=== PATIENT | female | born 1935 | race Caucasian/White ===

== ENCOUNTER 2016-06-24 11:14 | Inpatient (IN) | payer MEDICARE, OTHER ==
[2016-06-24 12:01] LABS: Hematocrit 34 % (35-47); Hemoglobin 10.8 g/dl (12.0-16.0); Mean Corpuscular HGB Conc 32 g/dl (31-36); Mean Corpuscular Hemoglobin 28 pg (27-31); Mean Corpuscular Volume 87 fL (80-97); Mean Platelet Volume 9 um3 (7.4-10.4); Red Cell Distribution Width 15 % (10.5-15); White Blood Count 15.3 10^3/ul (3.5-10.8)
[2016-06-24 12:02] LABS: Comments Flag Yes
[2016-06-24 12:13] LABS: Albumin 2.7 g/dL (3.2-5.2); BUN/Creatinine Ratio 31.7 (8-20); Calcium 9.5 mg/dL (8.6-10.3); EGFR African American 85.6 (>60); EGFR Non-African American 66.6 (>60); Globulin 3.6 g/dL (2-4); Magnesium 2.1 mg/dL (1.9-2.7); Potassium 3.9 mmol/L (3.5-5.0); Total Protein 6.3 g/dL (6.4-8.9)
[2016-06-24 12:15] LABS: Troponin I 0.03 ng/mL (<0.04)
--- NOTE | 2016-06-24 12:15 | RAD ---
Indication: Altered mental status. Generalized illness. Chronic Charcot pulmonary disease. Comparison: June 11, 2016 chest radiograph and December 18, 2014 CT. Technique: Upright AP 1152 hours Report: Elevated lung volumes with significant rarefaction of the interstitial markings. No alveolar consolidation, focal pulmonary lesion, pleural effusion, pneumothorax. Upper normal heart size. Severely tortuous descending thoracic aorta without change compared with the prior CT. Prominent central pulmonary vasculature with peripheral attenuation favoring pulmonary arterial hypertension. S-shaped curve of the thoracic spine convex to the LEFT superiorly into the RIGHT in the mid to distal portion is unchanged. IMPRESSION: Stigmata of chronic obstructive pulmonary disease/emphysema with pulmonary arterial hypertension. No superimposed acute cardiopulmonary process evident.
[2016-06-24 12:18] LABS: B Type Natriuretic Peptide 111 pg/mL
[2016-06-24 12:19] LABS: Urine Bacteria 1+ (Absent); Urine Bilirubin Negative (Negative); Urine Glucose Negative (Negative); Urine Nitrite Positive (Negative)
[2016-06-24 12:22] LABS: TSH (Thyroid Stimulating Horm) 0.39 mcIU/mL (0.34-5.60)
[2016-06-24 12:26] LABS: Ammonia 33 mol/L (16-53)
[2016-06-24] MEDS ORDERED: cefTRIAXone(*) 1 GM in NS 0.9% 50 ML* 50 ML IVPB ONE (12:33)
[2016-06-24 12:36] LABS: C Reactive Protein 351.51 mg/L (< 5.00); Total Bilirubin 0.7 mg/dL (0.2-1.0)
[2016-06-24] MEDS: NS 0.9% 1000 ML* 2,000 ML IV ONE ×2 (12:55→14:34)
[2016-06-24] MEDS ORDERED: Ondansetron INJ* 2 MG/ML VIAL IV PRN (13:15)
[2016-06-24] MEDS ORDERED: Albuterol 2.5 MG/3 ML NEB.SOL* (0.083%) INH PRN (13:18)
--- NOTE | 2016-06-24 14:40 | ED ---
Estuardo Milner Matthew, scribed for Pablo Lowry MD on 06/24/16 at 1233 . Complex/Multi-Sys Presentation - HPI Summary HPI Summary: An 81 y/o female presents to the ED with weakness and coughing since 06/10. The patient was Dx on 06/10 with pneumonia, however the prescription for Z-pack was not give at [place]. The patient's family made her an appoint with Dr. Almaraz and was re-prescribed the Z-pack, which did not relieve her symptoms. The patient remains symptomatic. Associated symptoms include weakness, decreased appetite/thirst, incontinence, and cough. The patient denies urinary symptoms, diarrhea, and abdominal pain. The patient has a Hx of COPD and kidney failure. - History Of Current Complaint Chief Complaint: EDGeneral Time Seen by Provider: 06/24/16 12:08 Hx Obtained From: Patient Onset/Duration: Gradual Onset, Lasting Weeks, Still Present Timing: Constant Severity Currently: Moderate Severity Initially: Moderate Location: Negative Associated Signs And Symptoms: Positive: Weakness, Cough. Negative: Diarrhea, Abdominal Pain - Allergies/Home Medications Allergies/Adverse Reactions: Allergies Allergy/AdvReac Type Severity Reaction Status Date / Time Ciprofloxacin Allergy Unknown Unknown Verified 06/24/16 12:23 Reaction Details Sulfa Drugs Allergy Unknown Unknown Verified 06/24/16 12:23 Reaction Details Home Medications: Home Medications Acetaminophen [Acetaminophen Extra Stren] 1,000 mg PO Q8HR PRN 06/24/16 [ History Confirmed 06/24/16] PMH/Surg Hx/FS Hx/Imm Hx Endocrine/Hematology History: Denies: Hx Anticoagulant Therapy, Hx Diabetes Cardiovascular History: Reports: Hx Hypertension, Other Cardiovascular Problems/ Disorders - HAS ONLY 1 FUNCTIONING KIDNEY Respiratory History: Reports: Hx Chronic Obstructive Pulmonary Disease (COPD), Hx Pneumonia, Hx Pulmonary Edema, Other Respiratory Problems/Disorders - PNEUMONIA Denies: Hx Asthma GI History: Reports: Hx Diverticulosis History: Reports: Hx Renal Disease, Other Problems/Disorders - Renal disease, 1 functioning kidney, Denies: Hx Dialysis Musculoskeletal History: Reports: Hx Osteoporosis, Hx Scoliosis Denies: Hx Back Problems Sensory History: Reports: Hx Cataracts, Hx Contacts or Glasses Opthamlomology History: Reports: Hx Cataracts, Hx Contacts or Glasses Neurological History: Reports: Hx Dementia, Hx Seizures Denies: Hx Developmental Delay - Surgical History Surgery Procedure, Year, and Place: tonsils, appendix and cataract. unable to recall dates. distant past Hx Anesthesia Reactions: No Infectious Disease History: No Infectious Disease History: Denies: Hx Clostridium Difficile, Hx Hepatitis, Hx Human Immunodeficiency Virus (HIV), Hx Shingles, Hx Tuberculosis, Traveled Outside the [place] in Last 30 Days - Family History Family History: FHx of Breast CA. - Social History Alcohol Use: None Alcohol Amount: 1/year Substance Use Type: Reports: None Hx Tobacco Use: Yes Smoking Status (MU): Former Smoker Type: Cigarettes Amount Used/How Often: 30 years Length of Time of Smoking/Using Tobacco: pt does not recall start and stop date. says "20- 30 years" Have You Smoked in the Last Year: No Review of Systems Constitutional: Negative Eyes: Negative ENT: Negative Cardiovascular: Negative Positive: Cough Gastrointestinal: Negative Negative: Abdominal Pain, Diarrhea Genitourinary: Negative Positive: no symptoms reported Skin: Negative Positive: Weakness - general Psychological: Normal All Other Systems Reviewed And Are Negative: Yes Physical Exam Triage Information Reviewed: Yes Vital Signs On Initial Exam: Initial Vitals Temp Pulse Resp BP Pulse Ox 98.5 F 91 20 109/64 99 06/24/16 11:16 06/24/16 11:16 06/24/16 11:16 06/24/16 11:16 06/24/16 11:16 Vital Signs Reviewed: Yes Appearance: Positive: Well-Appearing, No Pain Distress Skin: Positive: Warm, Skin Color Reflects Adequate Perfusion, Dry Head/Face: Positive: Normal Head/Face Inspection Eyes: Positive: EOMI, OLI ENT: Positive: Other - oral mucosa dry Neck: Positive: Supple, Nontender Respiratory/Lung Sounds: Positive: Clear to Auscultation, Breath Sounds Present Cardiovascular: Positive: RRR Abdomen Description: Positive: Nontender, Soft Bowel Sounds: Positive: Present Musculoskeletal: Positive: Normal, Strength/ROM Intact Neurological: Positive: Sensory/Motor Intact, Alert, Oriented to Person Place, Time Psychiatric: Positive: Affect/Mood Appropriate Diagnostics - Vital Signs Vital Signs Temp Pulse Resp BP Pulse Ox 06/24/16 11:16 98.5 F 91 20 109/64 99 - Laboratory Lab Results: Lab Results 06/24/16 06/24/16 06/24/16 Range/Units 11:44 11:44 11:44 WBC 15.3 H (3.5-10.8) 10^3/ul RBC 3.90 L (4.0-5.4) 10^6/ul Hgb 10.8 L (12.0-16.0) g/dl Hct 34 L (35-47) % MCV 87 (80-97) fL MCH 28 (27-31) pg MCHC 32 (31-36) g/dl RDW 15 (10.5-15) % Plt Count 382 (150-450) 10^3/ul MPV 9 (7.4-10.4) um3 Neut % (Auto) 78.8 (38-83) % Lymph % (Auto) 9.7 L (25-47) % [place] % (Auto) 11.0 H (1-9) % Eos % (Auto) 0 (0-6) % Baso % (Auto) 0.5 (0-2) % Absolute Neuts (auto) 12.0 H (1.5-7.7) 10^3/ul Absolute Lymphs (auto) 1.5 (1.0-4.8) 10^3/ul Absolute Monos (auto) 1.7 H (0-0.8) 10^3/ul Absolute Eos (auto) 0 (0-0.6) 10^3/ul Absolute Basos (auto) 0.1 (0-0.2) 10^3/ul Absolute Nucleated RBC 0 10^3/ul Nucleated RBC % 0 INR (Anticoag Therapy) 1.49 H (0.89-1.11) APTT 26.9 (26.0-36.3) seconds Sodium (133-145) mmol/L Potassium (3.5-5.0) mmol/L Chloride (101-111) mmol/L Carbon Dioxide (22-32) mmol/L Anion Gap (2-11) mmol/L BUN (6-24) mg/dL Creatinine (0.51-0.95) mg/dL Est GFR ( Amer) (>60) Est GFR (Non-Af Amer) (>60) BUN/Creatinine Ratio (8-20) Glucose (70-100) mg/dL Lactic Acid (0.5-2.0) mmol/L Calcium (8.6-10.3) mg/dL Magnesium (1.9-2.7) mg/dL Total Bilirubin AST (13-39) U/L ALT (7-52) U/L Alkaline Phosphatase (34-104) U/L Ammonia CK-MB (CK-2) (0.6-6.3) ng/mL Troponin I (<0.04) ng/mL C-Reactive Protein B-Natriuretic Peptide ( - 100) pg/mL Total Protein (6.4-8.9) g/dL Albumin (3.2-5.2) g/dL Globulin (2-4) g/dL Albumin/Globulin Ratio (1-3) Lipase (11.0-82.0) U/L TSH Urine Color Yellow Urine Appearance Cloudy Urine pH 5.0 (5-9) Ur Specific [place] 1.020 (1.010-1.030) Urine Protein Negative (Negative) Urine Ketones 1+ H (Negative) Urine Blood 1+ H (Negative) Urine Nitrate Positive H (Negative) Urine Bilirubin Negative (Negative) Urine Urobilinogen Negative (Negative) Ur Leukocyte Esterase 3+ H (Negative) Urine WBC (Auto) 3+(>20/hpf) H (Absent) Urine RBC (Auto) 1+(3-5/hpf) H (Absent) Ur Squamous Epith Cells Present H (Absent) Ur Transition Epith Cell Present H (Absent) Urine Bacteria 1+ H (Absent) Urine Glucose Negative (Negative) 06/24/16 06/24/16 06/24/16 Range/Units 11:44 11:44 11:44 WBC (3.5-10.8) 10^3/ul RBC (4.0-5.4) 10^6/ul Hgb (12.0-16.0) g/dl Hct (35-47) % MCV (80-97) fL MCH (27-31) pg MCHC (31-36) g/dl RDW (10.5-15) % Plt Count (150-450) 10^3/ul MPV (7.4-10.4) um3 Neut % (Auto) (38-83) % Lymph % (Auto) (25-47) % [place] % (Auto) (1-9) % Eos % (Auto) (0-6) % Baso % (Auto) (0-2) % Absolute Neuts (auto) (1.5-7.7) 10^3/ul Absolute Lymphs (auto) (1.0-4.8) 10^3/ul Absolute Monos (auto) (0-0.8) 10^3/ul Absolute Eos (auto) (0-0.6) 10^3/ul Absolute Basos (auto) (0-0.2) 10^3/ul Absolute Nucleated RBC 10^3/ul Nucleated RBC % INR (Anticoag Therapy) (0.89-1.11) APTT (26.0-36.3) seconds Sodium 138 (133-145) mmol/L Potassium 3.9 (3.5-5.0) mmol/L Chloride 100 L (101-111) mmol/L Carbon Dioxide 27 (22-32) mmol/L Anion Gap 11 (2-11) mmol/L BUN 26 H (6-24) mg/dL Creatinine 0.82 (0.51-0.95) mg/dL Est GFR ( Amer) 85.6 (>60) Est GFR (Non-Af Amer) 66.6 (>60) BUN/Creatinine Ratio 31.7 H (8-20) Glucose 137 H (70-100) mg/dL Lactic Acid 1.0 (0.5-2.0) mmol/L Calcium 9.5 (8.6-10.3) mg/dL Magnesium 2.1 (1.9-2.7) mg/dL Total Bilirubin Pending AST 82 H (13-39) U/L ALT 50 (7-52) U/L Alkaline Phosphatase 84 (34-104) U/L Ammonia Pending CK-MB (CK-2) 2.1 (0.6-6.3) ng/mL Troponin I 0.03 (<0.04) ng/mL C-Reactive Protein Pending B-Natriuretic Peptide 111 H ( - 100) pg/mL Total Protein 6.3 L (6.4-8.9) g/dL Albumin 2.7 L (3.2-5.2) g/dL Globulin 3.6 (2-4) g/dL Albumin/Globulin Ratio 0.8 L (1-3) Lipase 17 (11.0-82.0) U/L TSH Pending Urine Color Urine Appearance Urine pH (5-9) Ur Specific [place] (1.010-1.030) Urine Protein (Negative) Urine Ketones (Negative) Urine Blood (Negative) Urine Nitrate (Negative) Urine Bilirubin (Negative) Urine Urobilinogen (Negative) Ur Leukocyte Esterase (Negative) Urine WBC (Auto) (Absent) Urine RBC (Auto) (Absent) Ur Squamous Epith Cells (Absent) Ur Transition Epith Cell (Absent) Urine Bacteria (Absent) Urine Glucose (Negative) Result Diagrams: 06/24/16 11:44 06/24/16 11:44 Lab Statement: Any lab studies that have been ordered have been reviewed, and results considered in the medical decision making process. - Radiology CXR Xray Interpretation: No Acute Changes - IMPRESSION: Stigmata of chronic obstructive pulmonary disease/emphysema with pulmonary arterial hypertension. No superimposed acute cardiopulmonary process evident. Radiology Interpretation Completed By: Radiologist - EKG 11:29 Cardiac Rate: NL - 93 bpm EKG Rhythm: Sinus Rhythm Ectopy: PACs EKG Interpretation: RBBB; LAFB Complex Multi-Symp Course/Dx Assessment/Plan: ADMIT HOSPITALIST STABLE - Diagnoses Provider Diagnoses: Weakness, UTI (urinary tract infection) - Physician Notifications Discussed Care Of Patient With: Dr. Rhoades (Hospitalist) at 1:02 -- Notified of patient's history and will admit the patient. Discharge - Discharge Plan Condition: Stable Disposition: ADMITTED TO [facility] The documentation as recorded by the Estuardo machado Matthew accurately reflects the service I personally performed and the decisions made by me, Pablo Lowry MD.
--- NOTE | 2016-06-24 16:20 | RAD ---
Indication: Assess hydronephrosis. History of severe LEFT hydronephrosis. Comparison: December 04, 2015 ultrasound. December 03, 2015 CT. Technique: Renal ultrasound. Report: 11.9 x 5.4 x 5.7 cm RIGHT kidney demonstrates normal cortical echogenicity. No conspicuous stones, hydronephrosis, or focal lesions evident. 20 x 9.9 x 9.9 cm LEFT kidney is remarkable for severe pelvicaliectasis with near imperceptible rind of cortical tissue similar to the prior exam. Low-level echoes within the dilated calyces of the LEFT kidney consistent with debris. IMPRESSION: 1. Normal ultrasound appearance of the RIGHT kidney. 2. Marked LEFT hydronephrosis and cortical atrophy without gross change.
[2016-06-24] MEDS: Enoxaparin(*) 40 MG/0.4 ML SYR SUBCUT SCH (17:36)
[2016-06-24] MEDS: NS 0.9% 1000 ML* 1,000 ML IV SCH (17:37)
--- NOTE | 2016-06-24 18:13 | PN ---
Hospitalist Progress Note Renal US shows significant L sided hydronephrosis. Requested percutaneous nephrostomy tube placement for tomorrow am with interventional radiology.
[2016-06-24] MEDS: Mometasone/Formoter 200/5 MDI INH SCH (19:55)
[2016-06-24] MEDS: levETIRAcetam TAB* 500 MG PO SCH (20:37)
--- NOTE | 2016-06-24 21:45 | HP ---
ADMISSION HISTORY AND PHYSICAL: DATE OF ADMISSION: 06/24/16 PRIMARY CARE PROVIDER: Celeste Almaraz MD ADMITTING PROVIDER: ADELAIDE Thakkar SUPERVISING PHYSICIAN: Nichole Amato MD* (report dictated by ADELAIDE Thakkar). CHIEF COMPLAINT: Weakness. HISTORY OF PRESENT ILLNESS: This is an 81-year-old female with oxygen- dependent COPD, mild dementia, and seizure disorder who presented to the emergency department with complaints of weakness. The patient was last seen in the emergency department on June 11 just less than 2 weeks ago. Chest x- ray was suggestive of a right lower lobe infiltrate and the patient was prescribed azithromycin. There seemed to be a delay in her receiving the azithromycin, but she did complete treatment as of yesterday. She at her baseline is quite active, but has really not gotten out of bed at all in the last 10 days or so. She has been incontinent of urine, which is abnormal for her. She denies associated abdominal pain. She has been afebrile. She is a long-term resident at [place]. She has had a very little energy or appetite. The patient denies nausea, vomiting, or diarrhea, however. The patient was last admitted in November approximately 6 months ago with a complicated urinary tract infection. 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 She had evidence of hydronephrosis and associated stranding around that kidney. She eventually underwent aspiration and nephrostomy tube placement and she had a large amount of purulent material drained from that left kidney and nephrostomy tube stayed in for approximately 6 weeks. The patient has not been treated for any other urinary tract infections since that time. Micro from that admission grew E. coli resistant to quinolones and tetracycline. The patient also had a complicated hospital stay including development of acute respiratory failure resulting in intubation. PAST MEDICAL HISTORY: 1. Mild dementia. 2. COPD, oxygen dependent at 4 L at baseline. 3. Seizure disorder, well controlled on Keppra. 4. Congenital left kidney insufficiency. PAST SURGICAL HISTORY: 1. Cataracts. 2. Appendectomy. HOME MEDICATIONS: 1. Aricept 10 mg p.o. daily. 2. Albuterol nebulizers 2.5 mg inhaled q.4 hours p.r.n. shortness of breath. 3. Advair 250/50 mcg 1 puff inhaled twice daily. 4. Keppra 500 mg p.o. in the morning and 1000 mg at bedtime. 5. Spiriva 1 capsule inhaled daily. SOCIAL HISTORY: The patient is a long-term resident at [facility]. She has a greater than 63-vypc-etle smoking history, but quit approximately 20 years ago. Her son and [id number] are quite involved in her care and her son, Romel Umaña, is her health care proxy. REVIEW OF SYSTEMS: As listed above in the HPI. PHYSICAL EXAMINATION GENERAL: This is a very pleasant elderly female, in no acute distress. She does appear acutely ill and accompanied by her son and [id number]. VITAL SIGNS: Temperature 98.5 degrees Fahrenheit, pulse 95 beats per minute, respiratory rate 16 per minute, oxygen saturation 99% on 4 L, and blood pressure 98/64 mmHg. HEENT: Head is normocephalic and atraumatic. Mucous membranes are pink and mildly dry. RESPIRATORY: Normal work of breathing. She does have nasal cannula in place with 4 L of supplemental O2. She does not have any adventitious lung sounds appreciated, but does have reduced breath sounds throughout most lung [place]. CARDIOVASCULAR: Heart has a regular rate and rhythm without murmurs, rubs, or gallops. ABDOMEN: Soft, but exquisitely tender to palpation in the left flank region and bowel sounds are present. EXTREMITIES: No lower extremity edema appreciated. LIMITED SKIN EXAM: No concerning rashes or lesions. PSYCH: The patient is alert and appropriately oriented. Not all orientation questions were asked specifically. DIAGNOSTIC STUDIES/LAB DATA: Laboratory evaluation: CBC shows a white blood cell count of 15,300; hemoglobin 10.8 g/dL; and platelet count of 382. INR is elevated at 1.5 with a normal PTT. Comprehensive metabolic panel is essentially within normal limits. Sodium of 138 mmol/L, potassium 3.9 mmol/L, BUN slightly elevated at 26 with a normal creatinine of 0.82, and estimated GFR of 66. Random glucose of 137 mg/dL. Troponin negative at 0.03. CRP is significantly elevated at 351. BNP mildly elevated at 111. Urinalysis is grossly abnormal and positive for ketones, blood, and nitrites as well as 3+ leukocyte esterase, 3+ white blood cells, and 1+ red blood cells, positive for presence of bacteria. Imaging: Chest x-ray shows no acute infiltrates, evidence of chronic COPD changes. Personally reviewed chest x-ray from 06/11/16 an infiltrate in the right lower lobe present at that time has resolved. EKG shows sinus rhythm with right bundle-branch block and no ischemic changes appreciated. ASSESSMENT AND PLAN: This is an 81-year-old female with mild dementia, oxygen- dependent chronic obstructive pulmonary disease, and seizure disorder who presents with a complicated urinary tract infection with complaints of weakness. She will be admitted to the hospital for further treatment. 1. Complicated urinary tract infection: The patient does have a history of left pyelonephritis with congenital stricture and hydro, requiring nephrostomy tube placement during her last hospital stay in November. She has some tenderness over the left flank area today as well. We will obtain a renal ultrasound to assess for hydronephrosis. We will empirically treat with ceftriaxone, which seems like an appropriate choice after review of micro from her last hospital admission. The patient is currently receiving IV fluids and we will continue those at a relatively low rate for maintenance. 2. Oxygen-dependent chronic obstructive pulmonary disease: No evidence of acute exacerbation. The patient will be continued on her typical O2 via nasal cannula and inhaled medications. 3. Chronic respiratory failure secondary to chronic obstructive pulmonary disease. 4. Seizure disorder - this is well controlled. We will continue her Keppra. 5. Congenital kidney disease - she has a known left congenital stricture, resulting in impairment of her left kidney. 6. Code status: The patient is DNR/DNI. 7. Health care proxy: Listed as her son, Acosta Umaña. 8. DVT prophylaxis: The patient is a [id number] risk for DVT and will be placed on Lovenox 40 mg subcu daily for prophylaxis. DISPOSITION: The patient will be admitted to the hospital for treatment of a complicated urinary tract infection. ANTICIPATED LENGTH OF STAY: Greater than 2 days. ADELAIDE THAKKAR CC: Dr. Almaraz* [id number]/[facility] #: [id number] BRAULIO
--- NOTE | 2016-06-24 23:38 | PN ---
Progress Note - Progress Note Note: Called by nursing SBP 90s. Pt asymptomatic. HR unchanged. Last TTE November wnl. Bolus NS 350cc x 1 liter and reevaluate
[2016-06-24] MEDS ORDERED: NS 0.9% 1000 ML* 1,000 ML IV SCH (23:45)
[2016-06-25 06:25] LABS: Hematocrit 29 % (35-47); Hemoglobin 9.3 g/dl (12.0-16.0); Mean Corpuscular HGB Conc 32 g/dl (31-36); Mean Corpuscular Hemoglobin 28 pg (27-31); Mean Corpuscular Volume 87 fL (80-97); Mean Platelet Volume 8 um3 (7.4-10.4); Red Blood Count 3.38 10^6/ul (4.0-5.4); Red Cell Distribution Width 15 % (10.5-15); White Blood Count 11.9 10^3/ul (3.5-10.8)
[2016-06-25 06:39] LABS: BUN/Creatinine Ratio 24.2 (8-20); Calcium 8.1 mg/dL (8.6-10.3); EGFR African American 118.2 (>60); EGFR Non-African American 91.9 (>60); Potassium 3.3 mmol/L (3.5-5.0)
[2016-06-25] MEDS ORDERED: Spiriva Inhaler DEVICE* 1 EACH DEVICE ONE (09:00)
[2016-06-25] MEDS ORDERED: Influenza VAC *QUAD* 2016-17* 0.5 ML SYRINGE IM ONE (09:00)
[2016-06-25] MEDS: Donepezil TAB* 5 MG PO SCH (09:24)
[2016-06-25] MEDS: levETIRAcetam TAB* 500 MG PO SCH ×2 (09:24→20:33)
[2016-06-25] MEDS: Tiotropium CAP.INH* CAP.INH/18 MCG (USE ORDER SET !) INH SCH (09:24)
[2016-06-25] MEDS: Mometasone/Formoter 200/5 MDI INH SCH ×2 (09:25→20:21)
[2016-06-25] MEDS ORDERED: cefTRIAXone VIAL(*) 1,000 MG in NS 0.9% 50 ML* 50 ML IVPB ONE (11:00)
[2016-06-25] MEDS ORDERED: fentaNYL* 50 MCG/ML 2 ML VIAL (100 MCG VIAL) ONE (12:11)
[2016-06-25] MEDS: Acetaminophen TAB* 325 MG PO PRN ×2 (13:57→20:33)
[2016-06-25] MEDS: Enoxaparin(*) 40 MG/0.4 ML SYR SUBCUT SCH (13:57)
--- NOTE | 2016-06-25 15:11 | PN ---
Subjective Date of Service: 06/25/16 Interval History: Leanna Umaña is an 81F admitted for L pyelonephritis. She has a congenitally non- functioning L kidney which was the source of an E coli sepsis in November this year. At that time a nephrostomy tube was placed and D/C'd ~6weeks later for uncertain reasons. I discussed the case with Ping Baltazar MD urology who reported being aware of her in November. At that time, he recommended nephrostomy placement pending outpatient follow up and arranging laparoscopic L nephrectomy. He states this is still his recommendation. Family History: Unchanged from Admission Social History: Unchanged from Admission Past Medical History: Unchanged from Admission Objective Active Medications: Acetaminophen (Tylenol Tab*) 650 mg PO Q4H PRN PRN Reason: FEVER/PAIN Last Admin: 06/25/16 13:57 Dose: 650 mg Albuterol (Ventolin 2.5 Mg/3 Ml Neb.Katina*) 2.5 mg INH Q4H PRN PRN Reason: cough, SOB, wheeze Donepezil HCl (Aricept Tab*) 10 mg PO DAILY [facility] Last Admin: 06/25/16 09:24 Dose: 10 mg Enoxaparin Sodium (Lovenox(*)) 40 mg SUBCUT Q24H [facility] Last Admin: 06/25/16 13:57 Dose: 40 mg Sodium Chloride (Ns 0.9% 1000 Ml*) 1,000 mls @ 75 mls/hr IV PER RATE [facility] Last Admin: 06/24/16 17:37 Dose: 75 mls/hr Sodium Chloride (Ns 0.9% 1000 Ml*) 1,000 mls @ 350 mls/hr IV PER RATE ONE Stop: 06/26/16 02:31 Levetiracetam (Keppra Tab*) 500 mg PO DAILY [facility] Last Admin: 06/25/16 09:24 Dose: 500 mg Levetiracetam (Keppra Tab*) 1,000 mg PO BEDTIME [facility] Last Admin: 06/24/16 20:37 Dose: 1,000 mg Mometasone Furoate/Formoterol Fumar (Dulera 200/5 Mdi*) 2 puff INH BID [facility] Last Admin: 06/25/16 09:25 Dose: 2 puff Ondansetron HCl (Zofran Inj*) 4 mg IV Q4H PRN PRN Reason: NAUSEA/VOMITING Tiotropium [place] (Spiriva Cap.Inh*) 1 cap INH DAILY [facility] Last Admin: 06/25/16 09:24 Dose: 1 cap Vital Signs Temp 36.4 C 06/25/16 14:52 Pulse 83 06/25/16 14:52 Resp 24 06/25/16 14:52 BP 101/65 06/25/16 14:52 Pulse Ox 97 06/25/16 14:52 Intake & Output 06/24/16 06/25/16 06/25/16 23:59 11:59 23:59 Intake Total 999 2081 305 Output Total 200 Balance 999 1881 305 Weight 139 lb 9.6 oz Intake: IV Fluids 999 1641 305 NS (0.9%) 1641 305 Oral 0 440 0 Output: Urine 200 Other: Estimated Void Medium # Bowel Movements 0 0 # Voids 1 1 Eyes: No Scleral Icterus Ears/Nose/Mouth/Throat: Clear Oropharnyx, Mucous Membranes Moist Neck: Trachea Midline Respiratory: Symmetrical Chest Expansion and Respiratory Effort, Clear to Auscultation Abdominal: NL Sounds; No Tenderness; No Distention Skin: No Rash or Ulcers Neurological: Alert and Oriented x 3 Result Diagrams: 06/25/16 05:46 06/25/16 05:46 Additional Lab and Data: Laboratory Results - last 24 hr 06/25/16 06/25/16 05:46 05:46 WBC 11.9 H RBC 3.38 L Hgb 9.3 L Hct 29 L MCV 87 MCH 28 MCHC 32 RDW 15 Plt Count 312 MPV 8 Neut % (Auto) 82.0 Lymph % (Auto) 5.9 L [place] % (Auto) 11.6 H Eos % (Auto) 0.2 Baso % (Auto) 0.3 Absolute Neuts (auto) 9.7 H Absolute Lymphs (auto) 0.7 L Absolute Monos (auto) 1.4 H Absolute Eos (auto) 0 Absolute Basos (auto) 0 Absolute Nucleated RBC 0 Nucleated RBC % 0 Sodium 139 Potassium 3.3 L Chloride 108 Carbon Dioxide 26 Anion Gap 5 BUN 15 Creatinine 0.62 Est GFR ( Amer) 118.2 Est GFR (Non-Af Amer) 91.9 BUN/Creatinine Ratio 24.2 H Glucose 140 H Calcium 8.1 L Assess/Plan/Problems-Billing Assessment: 81F presenting with L pyelonephritis w/ a congenitally non- functioning L kidney - Patient Problems (1) Pyelonephritis Current Visit: Yes Status: Acute Priority: High Code(s): N12 - TUBULO- INTERSTITIAL NEPHRITIS, NOT SPCF ACUTE OR CHRONIC SNOMED Code(s): 51351103 Comment: : L nephrostomy tube placed today via IR : transfer to tele as she developed respiratory failure after last nephrostomy placed : IV ceftriaxone per previous urine CX : IVFs : outpatient f/u w/ S MD Giovanny urology for arrangement of L nephrectomy : supportive care (2) Dementia Current Visit: No Status: Chronic Code(s): F03.90 - UNSPECIFIED DEMENTIA WITHOUT BEHAVIORAL DISTURBANCE SNOMED Code(s): 88842935 Comment: : continue donepezil (3) Seizure disorder Current Visit: No Status: Chronic Code(s): G40.909 - EPILEPSY, UNSP, NOT INTRACTABLE, WITHOUT STATUS EPILEPTICUS SNOMED Code(s): 665298576 Comment: : continue levetiracetam : seizure precautions
[2016-06-25] MEDS ORDERED: Potassium Chlor TAB* 20 MEQ TAB.ER PO ONE (15:14)
[2016-06-25 15:54] LABS: Urine Bacteria 1+ (Absent)
[2016-06-25 15:56] LABS: Urine Bilirubin Negative (Negative); Urine Glucose Negative (Negative); Urine Nitrite Negative (Negative)
[2016-06-25] MEDS: traMADol TAB* 50 MG PO PRN (17:36)
--- NOTE | 2016-06-25 17:37 | PN ---
Progress Note - Progress Note SOAP: Date of Service: 06/25/16 Subjective: [Minimal 2/10 left flank pain. No nausea or vomiting. ] Objective: [ Selected Entries 06/25/16 14:52 Temperature 97.6 F Pulse Rate 83 Respiratory 24 Rate Blood Pressure 101/65 (mmHg) Blood Pressure 77 Mean O2 Sat by Pulse 97 Oximetry NAD, AAOx3 Left PCN tube in place Dressing is CDI Drain output ~1000 mL of opaque, huitron fluid] Assessment: 81 YOF s/p left PCN for septic hydronephrosis. Plan: 1. Drain to gravity. 2. Follow labs. 3. Flush with NS 10 mL Q 8 hours.
--- NOTE | 2016-06-25 18:06 | RAD ---
CPT II Codes: 6045F PERCUTANEOUS NEPHROSTOMY TUBE PLACEMENT WITH SONOGRAPHIC AND FLUOROSCOPIC GUIDANCE. INDICATION: Left-sided hydronephrosis with a leukocytosis COMPARISON: Renal ultrasound June 24, 2016 FLUOROSCOPY TIME: 1.06 minutes ANESTHESIA AND OTHER PERIOPERATIVE MEDICATIONS: 1% lidocaine locally. Sedation was provided with intravenous fentanyl. Continuous cardiopulmonary monitoring was provided by Dr. Liu and IR nursing staff. PROCEDURE NOTE AND IMAGING FINDINGS: The benefits and risks of the procedure explained to the patient and the patient's son. The patient consented to the procedure. The patient was positioned on the fluoroscopy table in the right lateral decubitus position. Preliminary sonographic exam demonstrates a massively dilated left renal collecting system. Due to the massive dilatation and distortion of the kidney differentiating calyces from the hilum is difficult.. Color flow analysis does not show any pulsating arteries in the intended percutaneous percutaneous nephrostomy catheter tract or in the immediate vicinity of the planned drain placement. A formal time out was preformed with the technologist and nursing staff. The intended percutaneous nephrostomy catheter site was prepped and draped in the usual sterile fashion. The patient was given intravenous sedation and local anesthesia with 1% lidocaine. Using ultrasound guidance mid-level pole calyx was accessed percutaneously with an 18-gauge needle. An ultrasound image was saved confirming correct positioning of the needle tip in the calyx. Under fluoroscopic control a 0.035 inch wire was advanced into the renal collecting system. With the wire secured in position the needle was removed and a 7-Mongolian dilating catheter was advanced through the skin over the wire into the collecting system. A urine sample was gently aspirated, capped in a sterile syringe and sent to the laboratory for analysis. After gently draining approximately 100 mL of opaque fluid from the collecting system, dilute contrast was injected to perform a nephrostogram which depicted a massively dilated left renal collecting system. Over the wire the tract dilated up, culminating in advancement of an 10 Mongolian pigtail drainage catheter into the collecting system. The pigtail loop was correctly positioned in the collecting system, a final nephrostogram confirmed appropriate position, the loop was secured and the catheter was connected to a drainage bag. The catheter was secured to the skin and the site was dressed with sterile gauze. The patient tolerated the procedure well without incident. IMPRESSION: Uncomplicated placement of 10 Mongolian percutaneous nephrostomy catheter into the massively dilated left renal collecting system with ultrasound and fluoroscopic guidance as described in the report. PLAN: 1. Percutaneous nephrostomy catheter to gravity. 2. Monitor drain output. 3. Follow-up laboratory samples. 4. Catheter should be flushed with 10 mL sterile saline every 8 hours. 5. Routine recommended exchange of percutaneous nephrostomy catheters is every 8-12 weeks depending on indication and specific circumstances of the patient.
[2016-06-25] MEDS: NS 0.9% 1000 ML* 1,000 ML IV SCH (21:27)
[2016-06-25] MEDS ORDERED: NS 0.9% 1000 ML* 1,000 ML IV ONE (23:40)
[2016-06-26] MEDS: Acetaminophen TAB* 325 MG PO PRN ×2 (02:52→16:53)
[2016-06-26] MEDS: traMADol TAB* 50 MG PO PRN (05:53)
[2016-06-26 06:10] LABS: Hematocrit 29 % (35-47); Mean Corpuscular HGB Conc 31 g/dl (31-36); Mean Corpuscular Hemoglobin 27 pg (27-31); Mean Corpuscular Volume 87 fL (80-97); Mean Platelet Volume 8 um3 (7.4-10.4); Red Blood Count 3.29 10^6/ul (4.0-5.4); Red Cell Distribution Width 15 % (10.5-15)
[2016-06-26 06:35] LABS: BUN/Creatinine Ratio 19.4 (8-20); Calcium 8.1 mg/dL (8.6-10.3); EGFR African American 118.2 (>60); EGFR Non-African American 91.9 (>60); Potassium 3.9 mmol/L (3.5-5.0)
[2016-06-26] MEDS: Donepezil TAB* 5 MG PO SCH (08:47)
[2016-06-26] MEDS: levETIRAcetam TAB* 500 MG PO SCH ×2 (08:47→20:15)
[2016-06-26] MEDS: Mometasone/Formoter 200/5 MDI INH SCH ×2 (09:45→20:45)
[2016-06-26] MEDS: Tiotropium CAP.INH* CAP.INH/18 MCG (USE ORDER SET !) INH SCH (09:46)
[2016-06-26] MEDS: cefTRIAXone VIAL(*) 1,000 MG in NS 0.9% 50 ML* 50 ML IVPB SCH (12:36)
[2016-06-26] MEDS: Enoxaparin(*) 40 MG/0.4 ML SYR SUBCUT SCH (13:20)
[2016-06-26] MEDS: NS 0.9% 1000 ML* 1,000 ML IV SCH (15:05)
--- NOTE | 2016-06-26 16:49 | PN ---
Subjective Date of Service: 06/26/16 Interval History: Mrs Umaña denies pain, N/V, F/C, SOB, or other issues. She tolerated the nephrostomy placement reasonably well with no complications. Family History: Unchanged from Admission Social History: Unchanged from Admission Past Medical History: Unchanged from Admission Objective Active Medications: Acetaminophen (Tylenol Tab*) 650 mg PO Q4H PRN PRN Reason: FEVER/PAIN Last Admin: 06/26/16 02:52 Dose: 650 mg Albuterol (Ventolin 2.5 Mg/3 Ml Neb.Katina*) 2.5 mg INH Q4H PRN PRN Reason: cough, SOB, wheeze Donepezil HCl (Aricept Tab*) 10 mg PO DAILY [facility] Last Admin: 06/26/16 08:47 Dose: 10 mg Enoxaparin Sodium (Lovenox(*)) 40 mg SUBCUT Q24H [facility] Last Admin: 06/26/16 13:20 Dose: 40 mg Sodium Chloride (Ns 0.9% 1000 Ml*) 1,000 mls @ 75 mls/hr IV PER RATE [facility] Last Admin: 06/26/16 15:05 Dose: 75 mls/hr Ceftriaxone Sodium 1,000 mg/ (Sodium Chloride) 50 mls @ 200 mls/hr IVPB Q24H [facility] Last Admin: 06/26/16 12:36 Dose: 200 mls/hr Levetiracetam (Keppra Tab*) 500 mg PO DAILY [facility] Last Admin: 06/26/16 08:47 Dose: 500 mg Levetiracetam (Keppra Tab*) 1,000 mg PO BEDTIME [facility] Last Admin: 06/25/16 20:33 Dose: 1,000 mg Mometasone Furoate/Formoterol Fumar (Dulera 200/5 Mdi*) 2 puff INH BID [facility] Last Admin: 06/26/16 09:45 Dose: 2 puff Ondansetron HCl (Zofran Inj*) 4 mg IV Q4H PRN PRN Reason: NAUSEA/VOMITING Tiotropium [place] (Spiriva Cap.Inh*) 1 cap INH DAILY [facility] Last Admin: 06/26/16 09:46 Dose: 1 cap Tramadol HCl (Ultram*) 50 mg PO Q6H PRN PRN Reason: PAIN Last Admin: 06/26/16 05:53 Dose: 50 mg Vital Signs Temp 36.7 C 06/26/16 11:12 Pulse 76 06/26/16 11:12 Resp 20 06/26/16 11:12 BP 101/64 06/26/16 11:12 Pulse Ox 100 06/26/16 11:12 Intake & Output 06/25/16 06/26/16 06/26/16 23:59 11:59 23:59 Intake Total 224 266 9815 Output Total 1055 250 Balance -876 862 2022 Intake: IV Fluids 710 473 462 NS (0.9%) 710 473 462 IVPB 50 ABX - CEFTRIAXONE 50 Oral 0 120 600 Pigtail Drain 10 Output: Nephrostomy #1 1055 250 Other: Estimated Void Small # Bowel Movements 0 0 # Voids 1 2 Oxygen Devices in Use Now: Nasal Cannula Ears/Nose/Mouth/Throat: Mucous Membranes Moist Neck: Trachea Midline Respiratory: Symmetrical Chest Expansion and Respiratory Effort, Clear to Auscultation Abdominal: NL Sounds; No Tenderness; No Distention, - - L nephrostomy in place draining serosanguinous Skin: No Rash or Ulcers Neurological: - - AA & O to person only Result Diagrams: 06/26/16 05:32 06/26/16 05:32 Additional Lab and Data: Laboratory Results - last 24 hr 06/26/16 06/26/16 05:32 05:32 WBC 19.0 H RBC 3.29 L Hgb 9.0 L Hct 29 L MCV 87 MCH 27 MCHC 31 RDW 15 Plt Count 312 MPV 8 Neut % (Auto) 93.1 H Lymph % (Auto) 3.8 L [place] % (Auto) 2.7 Eos % (Auto) 0.2 Baso % (Auto) 0.2 Absolute Neuts (auto) 17.7 H Absolute Lymphs (auto) 0.7 L Absolute Monos (auto) 0.5 Absolute Eos (auto) 0 Absolute Basos (auto) 0 Absolute Nucleated RBC 0 Nucleated RBC % 0 Sodium 138 Potassium 3.9 Chloride 109 Carbon Dioxide 25 Anion Gap 4 BUN 12 Creatinine 0.62 Est GFR ( Amer) 118.2 Est GFR (Non-Af Amer) 91.9 BUN/Creatinine Ratio 19.4 Glucose 99 Calcium 8.1 L Microbiology and Other Data: Microbiology 06/25/16 12:55 Urine Culture - Final Urine Escherichia Coli Assess/Plan/Problems-Billing Assessment: 81F presenting with L pyelonephritis w/ a congenitally non- functioning L kidney - Patient Problems (1) Pyelonephritis Current Visit: Yes Status: Acute Priority: High Code(s): N12 - TUBULO- INTERSTITIAL NEPHRITIS, NOT SPCF ACUTE OR CHRONIC SNOMED Code(s): 44215058 Comment: : L nephrostomy tube placed 06/25/2016 via Yahir Liu MD IR : IV ceftriaxone per previous urine CX : IVFs : outpatient appointment w/ S MD [facility] Jul 04, 2016 @ 1100am, son notified : supportive care (2) Dementia Current Visit: No Status: Chronic Code(s): F03.90 - UNSPECIFIED DEMENTIA WITHOUT BEHAVIORAL DISTURBANCE SNOMED Code(s): 99274830 Comment: : continue donepezil (3) Seizure disorder Current Visit: No Status: Chronic Code(s): G40.909 - EPILEPSY, UNSP, NOT INTRACTABLE, WITHOUT STATUS EPILEPTICUS SNOMED Code(s): 257431049 Comment: : continue levetiracetam : seizure precautions
[2016-06-26] MEDS ORDERED: NS 0.9% 250 ML* 250 ML IV ONE (18:00)
--- NOTE | 2016-06-26 22:18 | CONS ---
CONSULTATION REPORT: DATE: 06/26/2016. HISTORY OF PRESENT ILLNESS: Ms. Umaña is an 81-year-old white female whom I had seen her earlier this year because of an incidental finding of a markedly hydronephrotic nonfunctioning left kidney. This was noted on a routine imaging of her abdomen. At that time, she was totally asymptomatic and had no flank pain, no urinary tract infections, and no hematuria. 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 The recommendation was to be conservative and she did not need any additional treatment. The patient was admitted in November with sepsis and was found to have an infected left kidney. She had a nephrostomy tube placed. Following the nephrostomy tube placement, she became more septic and required intubation and she was in the ICU. She ultimately recovered and she was discharged back to the skilled nursing with the nephrostomy tube. The patient was supposed to be followed in my office and my plan was to refer her for a laparoscopic nephrectomy. The nephrostomy tube apparently either fell off or was removed. The patient did well until her present admission when she again showed up with urinary tract infection and symptoms of left pyelonephritis. Her urine culture grew pansensitive E. coli. She was started on IV antibiotics. Because of the presence of the hydronephrosis, a left nephrostomy tube was placed 2 days ago. Her white count went up to 19,000 following the tube placement, but ultimately she did fine and she is much improved today, draining clear urine, afebrile, & resolved flank pain. PLAN: The plan is to complete the course of antibiotics. She has an appointment to see me in my office in 1 week. I will make arrangements for referral for laparoscopic nephrectomy. [id number]/[facility] #: [id number] BRAULIO
[2016-06-27] MEDS: NS 0.9% 1000 ML* 1,000 ML IV SCH ×2 (03:01→11:08)
[2016-06-27 05:34] LABS: Hematocrit 30 % (35-47); Hemoglobin 9.5 g/dl (12.0-16.0); Mean Corpuscular HGB Conc 32 g/dl (31-36); Mean Corpuscular Hemoglobin 28 pg (27-31); Mean Corpuscular Volume 88 fL (80-97); Mean Platelet Volume 8 um3 (7.4-10.4); Red Blood Count 3.43 10^6/ul (4.0-5.4); Red Cell Distribution Width 15 % (10.5-15); White Blood Count 18.5 10^3/ul (3.5-10.8)
[2016-06-27 05:48] LABS: Anion Gap 4 mmol/L (2-11); BUN/Creatinine Ratio 16.9 (8-20); Blood Urea Nitrogen 10 mg/dL (6-24); CO2 Carbon Dioxide 26 mmol/L (22-32); Calcium 8.4 mg/dL (8.6-10.3); Chloride 107 mmol/L (101-111); EGFR African American 125.2 (>60); EGFR Non-African American 97.3 (>60); Glucose 85 mg/dL (70-100); Potassium 3.8 mmol/L (3.5-5.0); Sodium 137 mmol/L (133-145)
[2016-06-27] MEDS: levETIRAcetam TAB* 500 MG PO SCH ×2 (08:14→21:58)
[2016-06-27] MEDS: Acetaminophen TAB* 325 MG PO PRN (08:14)
[2016-06-27] MEDS: Donepezil TAB* 5 MG PO SCH (08:14)
[2016-06-27] MEDS: Tiotropium CAP.INH* CAP.INH/18 MCG (USE ORDER SET !) INH SCH (08:50)
[2016-06-27] MEDS: Mometasone/Formoter 200/5 MDI INH SCH ×2 (08:51→20:08)
[2016-06-27 10:31] LABS: Prealbumin < 3 mg/dL (18-38)
[2016-06-27] MEDS: cefTRIAXone VIAL(*) 1,000 MG in NS 0.9% 50 ML* 50 ML IVPB SCH (11:08)
[2016-06-27] MEDS: Enoxaparin(*) 40 MG/0.4 ML SYR SUBCUT SCH (13:19)
[2016-06-27] MEDS: traMADol TAB* 50 MG PO PRN ×2 (15:05→22:10)
--- NOTE | 2016-06-27 19:27 | PN ---
Subjective Date of Service: 06/27/16 Interval History: Mrs Umaña reports LUQ/flank pain with palpation and movement, but otherwise no complaints. Family History: Unchanged from Admission Social History: Unchanged from Admission Past Medical History: Unchanged from Admission Objective Active Medications: Acetaminophen (Tylenol Tab*) 650 mg PO Q4H PRN PRN Reason: FEVER/PAIN Last Admin: 06/27/16 08:14 Dose: 650 mg Albuterol (Ventolin 2.5 Mg/3 Ml Neb.Katina*) 2.5 mg INH Q4H PRN PRN Reason: cough, SOB, wheeze Donepezil HCl (Aricept Tab*) 10 mg PO DAILY [facility] Last Admin: 06/27/16 08:14 Dose: 10 mg Enoxaparin Sodium (Lovenox(*)) 40 mg SUBCUT Q24H [facility] Last Admin: 06/27/16 13:19 Dose: 40 mg Sodium Chloride (Ns 0.9% 1000 Ml*) 1,000 mls @ 75 mls/hr IV PER RATE [facility] Last Admin: 06/27/16 11:08 Dose: 75 mls/hr Ceftriaxone Sodium 1,000 mg/ (Sodium Chloride) 50 mls @ 200 mls/hr IVPB Q24H [facility] Last Admin: 06/27/16 11:08 Dose: 200 mls/hr Levetiracetam (Keppra Tab*) 500 mg PO DAILY [facility] Last Admin: 06/27/16 08:14 Dose: 500 mg Levetiracetam (Keppra Tab*) 1,000 mg PO BEDTIME [facility] Last Admin: 06/26/16 20:15 Dose: 1,000 mg Mometasone Furoate/Formoterol Fumar (Dulera 200/5 Mdi*) 2 puff INH BID [facility] Last Admin: 06/27/16 08:51 Dose: 2 puff Ondansetron HCl (Zofran Inj*) 4 mg IV Q4H PRN PRN Reason: NAUSEA/VOMITING Tiotropium [place] (Spiriva Cap.Inh*) 1 cap INH DAILY [facility] Last Admin: 06/27/16 08:50 Dose: 1 cap Tramadol HCl (Ultram*) 50 mg PO Q6H PRN PRN Reason: PAIN Last Admin: 06/27/16 15:05 Dose: 50 mg Vital Signs Temp 36.7 C 06/27/16 14:48 Pulse 67 06/27/16 14:48 Resp 18 06/27/16 16:57 BP 92/46 06/27/16 14:48 Pulse Ox 98 06/27/16 14:48 Intake & Output 06/26/16 06/27/16 06/27/16 23:59 11:59 23:59 Intake Total 2568 120 210 Output Total 150 200 Balance 2568 -30 10 Intake: IV Fluids 1908 NS (0.9%) 1908 IVPB 50 60 ABX - CEFTRIAXONE 50 60 Oral 600 120 150 Pigtail Drain 10 Output: Urine 200 Nephrostomy #1 150 Other: Estimated Void Medium # Bowel Movements 0 # Voids 2 2 Oxygen Devices in Use Now: Nasal Cannula Eyes: No Scleral Icterus Ears/Nose/Mouth/Throat: Mucous Membranes Moist Neck: Trachea Midline Respiratory: Symmetrical Chest Expansion and Respiratory Effort, Clear to Auscultation Cardiovascular: NL Sounds; No Murmurs; No JVD, RRR Abdominal: - - mild LUQ & flank tenderness similar to previous Skin: No Rash or Ulcers Neurological: Alert and Oriented x 3 Result Diagrams: 06/27/16 05:04 06/27/16 05:04 Additional Lab and Data: Laboratory Results - last 24 hr 06/27/16 06/27/16 05:04 05:04 WBC 18.5 H RBC 3.43 L Hgb 9.5 L Hct 30 L MCV 88 MCH 28 MCHC 32 RDW 15 Plt Count 376 MPV 8 Neut % (Auto) 92.0 H Lymph % (Auto) 3.4 L [place] % (Auto) 3.8 Eos % (Auto) 0.4 Baso % (Auto) 0.4 Absolute Neuts (auto) 17.0 H Absolute Lymphs (auto) 0.6 L Absolute Monos (auto) 0.7 Absolute Eos (auto) 0.1 Absolute Basos (auto) 0.1 Absolute Nucleated RBC 0.01 Nucleated RBC % 0 Sodium 137 Potassium 3.8 Chloride 107 Carbon Dioxide 26 Anion Gap 4 BUN 10 Creatinine 0.59 Est GFR ( Amer) 125.2 Est GFR (Non-Af Amer) 97.3 BUN/Creatinine Ratio 16.9 Glucose 85 Calcium 8.4 L Prealbumin < 3 L Microbiology and Other Data: Microbiology 06/25/16 12:55 Urine Culture - Final Urine Escherichia Coli Assess/Plan/Problems-Billing Assessment: 81F presenting with L pyelonephritis w/ a congenitally non- functioning L kidney - Patient Problems (1) Pyelonephritis Current Visit: Yes Status: Acute Priority: High Code(s): N12 - TUBULO- INTERSTITIAL NEPHRITIS, NOT SPCF ACUTE OR CHRONIC SNOMED Code(s): 87317141 Comment: : L nephrostomy tube placed 06/25/2016 via Yahir Liu MD IR : WBCs stable : IV ceftriaxone per previous urine CX : IVFs : outpatient appointment w/ S MD [facility] Jul 04, 2016 @ 1100am, son notified : supportive care (2) Severe protein-calorie malnutrition Current Visit: Yes Status: Acute Code(s): E43 - UNSPECIFIED SEVERE PROTEIN- CALORIE MALNUTRITION SNOMED Code(s): 359263833 Comment: : pre-albumin <3 : nutrition consult appreciated (3) Constipation Current Visit: Yes Status: Acute Code(s): K59.00 - CONSTIPATION, UNSPECIFIED SNOMED Code(s): 77114344 Comment: : MOM 30cc tonight : docusate 200mg BID (4) Dementia Current Visit: No Status: Chronic Code(s): F03.90 - UNSPECIFIED DEMENTIA WITHOUT BEHAVIORAL DISTURBANCE SNOMED Code(s): 74393778 Comment: : continue donepezil (5) Seizure disorder Current Visit: No Status: Chronic Code(s): G40.909 - EPILEPSY, UNSP, NOT INTRACTABLE, WITHOUT STATUS EPILEPTICUS SNOMED Code(s): 797237629 Comment: : continue levetiracetam : seizure precautions
[2016-06-27] MEDS ORDERED: Magnesium Hydroxide LIQ* 30 ML UDC PO ONE (19:28)
[2016-06-27] MEDS: Docusate CAP* 100 MG PO SCH (21:58)
[2016-06-28] MEDS: NS 0.9% 1000 ML* 1,000 ML IV SCH (01:28)
[2016-06-28 06:12] LABS: Hematocrit 27 % (35-47); Hemoglobin 8.5 g/dl (12.0-16.0); Mean Corpuscular HGB Conc 32 g/dl (31-36); Mean Corpuscular Hemoglobin 28 pg (27-31); Mean Corpuscular Volume 88 fL (80-97); Mean Platelet Volume 9 um3 (7.4-10.4); Red Blood Count 3.04 10^6/ul (4.0-5.4); Red Cell Distribution Width 15 % (10.5-15); White Blood Count 13.4 10^3/ul (3.5-10.8)
[2016-06-28] MEDS: levETIRAcetam TAB* 500 MG PO SCH ×2 (08:48→21:06)
[2016-06-28] MEDS: Docusate CAP* 100 MG PO SCH ×2 (08:48→21:06)
[2016-06-28] MEDS: Donepezil TAB* 5 MG PO SCH (08:48)
[2016-06-28] MEDS: traMADol TAB* 50 MG PO PRN ×2 (08:48→21:12)
[2016-06-28] MEDS: Mometasone/Formoter 200/5 MDI INH SCH ×2 (09:08→23:51)
[2016-06-28] MEDS: Tiotropium CAP.INH* CAP.INH/18 MCG (USE ORDER SET !) INH SCH (09:11)
--- NOTE | 2016-06-28 11:47 | PN ---
Subjective Date of Service: 06/28/16 Interval History: Mrs Umaña reports feeling better, decreasing LUQ/flank pain. No new complaints or issues. Family History: Unchanged from Admission Social History: Unchanged from Admission Past Medical History: Unchanged from Admission Objective Active Medications: Acetaminophen (Tylenol Tab*) 650 mg PO Q4H PRN PRN Reason: FEVER/PAIN Last Admin: 06/27/16 08:14 Dose: 650 mg Albuterol (Ventolin 2.5 Mg/3 Ml Neb.Katina*) 2.5 mg INH Q4H PRN PRN Reason: cough, SOB, wheeze Docusate Sodium (Colace Cap*) 200 mg PO BID [facility] Last Admin: 06/28/16 08:48 Dose: 200 mg Donepezil HCl (Aricept Tab*) 10 mg PO DAILY [facility] Last Admin: 06/28/16 08:48 Dose: 10 mg Enoxaparin Sodium (Lovenox(*)) 40 mg SUBCUT Q24H [facility] Last Admin: 06/27/16 13:19 Dose: 40 mg Sodium Chloride (Ns 0.9% 1000 Ml*) 1,000 mls @ 75 mls/hr IV PER RATE [facility] Last Admin: 06/28/16 01:28 Dose: 75 mls/hr Ceftriaxone Sodium 1,000 mg/ (Sodium Chloride) 50 mls @ 200 mls/hr IVPB Q24H [facility] Last Admin: 06/27/16 11:08 Dose: 200 mls/hr Levetiracetam (Keppra Tab*) 500 mg PO DAILY [facility] Last Admin: 06/28/16 08:48 Dose: 500 mg Levetiracetam (Keppra Tab*) 1,000 mg PO BEDTIME [facility] Last Admin: 06/27/16 21:58 Dose: 1,000 mg Mometasone Furoate/Formoterol Fumar (Dulera 200/5 Mdi*) 2 puff INH BID [facility] Last Admin: 06/28/16 09:08 Dose: 2 puff Ondansetron HCl (Zofran Inj*) 4 mg IV Q4H PRN PRN Reason: NAUSEA/VOMITING Tiotropium [place] (Spiriva Cap.Inh*) 1 cap INH DAILY [facility] Last Admin: 06/28/16 09:11 Dose: 1 cap Tramadol HCl (Ultram*) 50 mg PO Q6H PRN PRN Reason: PAIN Last Admin: 06/28/16 08:48 Dose: 50 mg Vital Signs Temp 36.4 C 06/28/16 07:17 Pulse 75 06/28/16 07:17 Resp 16 06/28/16 10:48 BP 106/61 06/28/16 07:17 Pulse Ox 95 06/28/16 09:13 Intake & Output 06/27/16 06/27/16 06/28/16 11:59 23:59 11:59 Intake Total 724 833 7183 Output Total 150 200 Balance -30 10 1491 Intake: IV Fluids 1311 NS (0.9%) 1311 IVPB 60 60 ABX - CEFTRIAXONE 60 60 Oral 120 150 120 Output: Urine 200 Nephrostomy #1 150 Other: Estimated Void Medium Small # Bowel Movements 0 0 0 # Voids 2 2 1 Oxygen Devices in Use Now: Nasal Cannula Eyes: No Scleral Icterus Ears/Nose/Mouth/Throat: Mucous Membranes Moist Neck: Trachea Midline Respiratory: Symmetrical Chest Expansion and Respiratory Effort, Clear to Auscultation Cardiovascular: NL Sounds; No Murmurs; No JVD, RRR Abdominal: NL Sounds; No Tenderness; No Distention, - - L nephrostomy Skin: No Rash or Ulcers Neurological: Alert and Oriented x 3 Result Diagrams: 06/28/16 05:50 06/27/16 05:04 Additional Lab and Data: Laboratory Results - last 24 hr 06/28/16 05:50 WBC 13.4 H RBC 3.04 L Hgb 8.5 L Hct 27 L MCV 88 MCH 28 MCHC 32 RDW 15 Plt Count 360 MPV 9 Neut % (Auto) 87.9 H Lymph % (Auto) 6.5 L [place] % (Auto) 4.5 Eos % (Auto) 0.8 Baso % (Auto) 0.3 Absolute Neuts (auto) 11.8 H Absolute Lymphs (auto) 0.9 L Absolute Monos (auto) 0.6 Absolute Eos (auto) 0.1 Absolute Basos (auto) 0 Absolute Nucleated RBC 0 Nucleated RBC % 0 Microbiology and Other Data: Microbiology 06/25/16 12:55 Urine Culture - Final Urine Escherichia Coli Assess/Plan/Problems-Billing Assessment: 81F presenting with L pyelonephritis w/ a congenitally non- functioning L kidney - Patient Problems (1) Pyelonephritis Current Visit: Yes Status: Acute Priority: High Code(s): N12 - TUBULO- INTERSTITIAL NEPHRITIS, NOT SPCF ACUTE OR CHRONIC SNOMED Code(s): 12507796 Comment: : L nephrostomy tube placed 06/25/2016 via Yahir Liu MD IR : WBCs improving : IV ceftriaxone : IVFs : outpatient appointment w/ S MD [facility] Jul 04, 2016 @ 1100am, son notified : supportive care (2) Severe protein-calorie malnutrition Current Visit: Yes Status: Acute Code(s): E43 - UNSPECIFIED SEVERE PROTEIN- CALORIE MALNUTRITION SNOMED Code(s): 136627362 Comment: : pre-albumin <3 : nutrition consult appreciated (3) Constipation Current Visit: Yes Status: Acute Code(s): K59.00 - CONSTIPATION, UNSPECIFIED SNOMED Code(s): 76233534 Comment: : MOM 30cc tonight : docusate 200mg BID (4) Dementia Current Visit: No Status: Chronic Code(s): F03.90 - UNSPECIFIED DEMENTIA WITHOUT BEHAVIORAL DISTURBANCE SNOMED Code(s): 34162095 Comment: : continue donepezil (5) Seizure disorder Current Visit: No Status: Chronic Code(s): G40.909 - EPILEPSY, UNSP, NOT INTRACTABLE, WITHOUT STATUS EPILEPTICUS SNOMED Code(s): 650166825 Comment: : continue levetiracetam : seizure precautions
[2016-06-28] MEDS: cefTRIAXone VIAL(*) 1,000 MG in NS 0.9% 50 ML* 50 ML IVPB SCH (12:16)
[2016-06-28 14:26] LABS: Hematocrit 30 % (35-47); Hemoglobin 9.4 g/dl (12.0-16.0)
[2016-06-28] MEDS: Enoxaparin(*) 40 MG/0.4 ML SYR SUBCUT SCH (14:37)
[2016-06-28 17:55] LABS: Hematocrit 26 % (35-47); Hemoglobin 8.2 g/dl (12.0-16.0)
[2016-06-29 01:02] LABS: Hematocrit 27 % (35-47); Hemoglobin 8.6 g/dl (12.0-16.0)
[2016-06-29 05:45] LABS: Hematocrit 28 % (35-47); Hemoglobin 8.8 g/dl (12.0-16.0); Mean Corpuscular HGB Conc 32 g/dl (31-36); Mean Corpuscular Hemoglobin 28 pg (27-31); Mean Corpuscular Volume 87 fL (80-97); Mean Platelet Volume 8 um3 (7.4-10.4); Red Blood Count 3.18 10^6/ul (4.0-5.4); Red Cell Distribution Width 15 % (10.5-15); White Blood Count 10.9 10^3/ul (3.5-10.8)
[2016-06-29 05:58] LABS: BUN/Creatinine Ratio 15.7 (8-20); EGFR African American 148.1 (>60); EGFR Non-African American 115.2 (>60); Potassium 3.6 mmol/L (3.5-5.0)
[2016-06-29] MEDS: traMADol TAB* 50 MG PO PRN (06:00)
[2016-06-29] MEDS: Donepezil TAB* 5 MG PO SCH (07:58)
[2016-06-29] MEDS: Docusate CAP* 100 MG PO SCH ×2 (07:58→20:55)
[2016-06-29] MEDS: Mometasone/Formoter 200/5 MDI INH SCH ×2 (07:58→19:40)
[2016-06-29] MEDS: levETIRAcetam TAB* 500 MG PO SCH ×2 (07:58→20:56)
[2016-06-29] MEDS: Tiotropium CAP.INH* CAP.INH/18 MCG (USE ORDER SET !) INH SCH (07:58)
[2016-06-29] MEDS ORDERED: Morphine INJ* 2 MG/ML 1 ML CARPUJECT IV PRN ×2 (08:10→08:11)
--- NOTE | 2016-06-29 09:37 | PN ---
Subjective Date of Service: 06/29/16 Interval History: Some pain L nephrostomy tube site, poor relief with oral tramadol, adequate relief with IV morphine. Family History: Unchanged from Admission Social History: Unchanged from Admission Past Medical History: Unchanged from Admission Objective Active Medications: Acetaminophen (Tylenol Tab*) 650 mg PO Q4H PRN PRN Reason: FEVER/PAIN Last Admin: 06/27/16 08:14 Dose: 650 mg Albuterol (Ventolin 2.5 Mg/3 Ml Neb.Katina*) 2.5 mg INH Q4H PRN PRN Reason: cough, SOB, wheeze Docusate Sodium (Colace Cap*) 200 mg PO BID [facility] Last Admin: 06/29/16 07:58 Dose: 200 mg Donepezil HCl (Aricept Tab*) 10 mg PO DAILY [facility] Last Admin: 06/29/16 07:58 Dose: 10 mg Enoxaparin Sodium (Lovenox(*)) 40 mg SUBCUT Q24H [facility] Last Admin: 06/28/16 14:37 Dose: 40 mg Sodium Chloride (Ns 0.9% 1000 Ml*) 1,000 mls @ 75 mls/hr IV PER RATE [facility] Last Admin: 06/28/16 01:28 Dose: 75 mls/hr Ceftriaxone Sodium 1,000 mg/ (Sodium Chloride) 50 mls @ 200 mls/hr IVPB Q24H [facility] Last Admin: 06/28/16 12:16 Dose: 200 mls/hr Levetiracetam (Keppra Tab*) 500 mg PO DAILY [facility] Last Admin: 06/29/16 07:58 Dose: 500 mg Levetiracetam (Keppra Tab*) 1,000 mg PO BEDTIME [facility] Last Admin: 06/28/16 21:06 Dose: 1,000 mg Mometasone Furoate/Formoterol Fumar (Dulera 200/5 Mdi*) 2 puff INH BID [facility] Last Admin: 06/29/16 07:58 Dose: 2 puff Morphine Sulfate (Morphine Inj (Syringe)*) 2 mg IV Q4H PRN PRN Reason: PAIN - SEVERE Morphine Sulfate (Morphine Inj (Syringe)*) 1 mg IV Q2H PRN PRN Reason: PAIN - MODERATE Last Admin: 06/29/16 08:40 Dose: 1 mg Ondansetron HCl (Zofran Inj*) 4 mg IV Q4H PRN PRN Reason: NAUSEA/VOMITING Tiotropium [place] (Spiriva Cap.Inh*) 1 cap INH DAILY [facility] Last Admin: 06/29/16 07:58 Dose: 1 cap Tramadol HCl (Ultram*) 50 mg PO Q6H PRN PRN Reason: PAIN Last Admin: 06/29/16 06:00 Dose: 50 mg Vital Signs 06/28/16 06/28/16 06/28/16 10:48 11:07 15:38 Temperature 98.1 F 98.3 F Pulse Rate 83 89 Respiratory 16 14 18 Rate Blood Pressure 119/70 110/57 (mmHg) O2 Sat by Pulse 100 98 Oximetry 06/28/16 06/28/16 06/28/16 19:52 20:00 21:12 Temperature 97.3 F Pulse Rate 82 Respiratory 16 18 18 Rate Blood Pressure 101/60 (mmHg) O2 Sat by Pulse 98 Oximetry 06/28/16 06/28/16 06/29/16 23:12 23:40 05:14 Temperature 97.8 F Pulse Rate 73 Respiratory 16 22 Rate Blood Pressure 100/59 (mmHg) O2 Sat by Pulse 98 98 Oximetry 06/29/16 06/29/16 06/29/16 06:00 07:20 08:00 Temperature 97.8 F Pulse Rate 70 Respiratory 16 16 16 Rate Blood Pressure 105/58 (mmHg) O2 Sat by Pulse 100 Oximetry 06/29/16 08:40 Temperature Pulse Rate Respiratory 20 Rate Blood Pressure (mmHg) O2 Sat by Pulse Oximetry Oxygen Devices in Use Now: Nasal Cannula Appearance: Alert, supine in bed. Eyes: No Scleral Icterus, PERRLA, - Respiratory: Symmetrical Chest Expansion and Respiratory Effort, Clear to Auscultation, Clear to Percussion, Clear to Palpation, - Extremities: No Edema, No Clubbing, Cyanosis, - Skin: No Rash or Ulcers, No Nodules or Sclerosis, - Neurological: Alert and Oriented x 3, NL Sensation, NL Gait, NL Muscle Strength and Tone, - - passive. Result Diagrams: 06/29/16 05:30 06/29/16 05:30 Additional Lab and Data: Laboratory Results - last 24 hr 06/28/16 05:50 WBC 13.4 H RBC 3.04 L Hgb 8.5 L Hct 27 L MCV 88 MCH 28 MCHC 32 RDW 15 Plt Count 360 MPV 9 Neut % (Auto) 87.9 H Lymph % (Auto) 6.5 L [place] % (Auto) 4.5 Eos % (Auto) 0.8 Baso % (Auto) 0.3 Absolute Neuts (auto) 11.8 H Absolute Lymphs (auto) 0.9 L Absolute Monos (auto) 0.6 Absolute Eos (auto) 0.1 Absolute Basos (auto) 0 Absolute Nucleated RBC 0 Nucleated RBC % 0 Microbiology and Other Data: Microbiology 06/25/16 12:55 Urine Culture - Final Urine Escherichia Coli Assess/Plan/Problems-Billing Assessment: 81F presenting with L pyelonephritis w/ a congenitally non- functioning L kidney - Patient Problems (1) Pyelonephritis Current Visit: Yes Status: Acute Priority: High Code(s): N12 - TUBULO- INTERSTITIAL NEPHRITIS, NOT SPCF ACUTE OR CHRONIC SNOMED Code(s): 50281657 Comment: : L nephrostomy tube placed 06/25/2016 via Yahir Liu MD IR : E. coli sens to all antibiotics tested. IV ceftriaxone : outpatient appointment w/ S MD [facility] Jul 04, 2016 @ 1100am, son notified : supportive care (2) Severe protein-calorie malnutrition Current Visit: Yes Status: Acute Code(s): E43 - UNSPECIFIED SEVERE PROTEIN- CALORIE MALNUTRITION SNOMED Code(s): 395933792 Comment: : pre-albumin <3 : nutrition consult appreciated appetite remains poor. (3) Seizure Current Visit: No Status: Chronic Priority: Medium Code(s): R56.9 - UNSPECIFIED CONVULSIONS SNOMED Code(s): 87351960 Comment: Continue keppra (4) Seizure disorder Current Visit: No Status: Chronic Code(s): G40.909 - EPILEPSY, UNSP, NOT INTRACTABLE, WITHOUT STATUS EPILEPTICUS SNOMED Code(s): 579188056 Comment: : continue levetiracetam : seizure precautions (5) Dementia Current Visit: No Status: Chronic Code(s): F03.90 - UNSPECIFIED DEMENTIA WITHOUT BEHAVIORAL DISTURBANCE SNOMED Code(s): 79035617 Comment: : continue donepezil. PT/OT eval requested. ? may need STR.
[2016-06-29] MEDS: cefTRIAXone VIAL(*) 1,000 MG in NS 0.9% 50 ML* 50 ML IVPB SCH (11:32)
[2016-06-29] MEDS: Enoxaparin(*) 40 MG/0.4 ML SYR SUBCUT SCH (15:34)
[2016-06-29] MEDS: oxyCODONE TAB* 5 MG TAB PO PRN (15:34)
[2016-06-30] MEDS: oxyCODONE TAB* 5 MG TAB PO PRN (06:08)
[2016-06-30 07:49] VITALS: BP 107/59
[2016-06-30] MEDS: Tiotropium CAP.INH* CAP.INH/18 MCG (USE ORDER SET !) INH SCH (07:56)
[2016-06-30] MEDS: Donepezil TAB* 5 MG PO SCH (07:56)
[2016-06-30] MEDS: levETIRAcetam TAB* 500 MG PO SCH (07:56)
[2016-06-30] MEDS: Docusate CAP* 100 MG PO SCH (07:56)
[2016-06-30] MEDS: Mometasone/Formoter 200/5 MDI INH SCH (08:03)
[2016-06-30] MEDS: Acetaminophen TAB* 325 MG PO PRN (10:00)
[2016-06-30] MEDS ORDERED: traMADol TAB* 50 MG PO PRN ×2 (10:53)
--- NOTE | 2016-06-30 11:12 | DCNOTE ---
Subjective Date of Service: 06/30/16 Interval History: C/O nausea. Poor appetite. Pain control OK. Family History: Unchanged from Admission Social History: Unchanged from Admission Past Medical History: Unchanged from Admission Objective Active Medications: Acetaminophen (Tylenol Tab*) 650 mg PO Q4H PRN PRN Reason: FEVER/PAIN Last Admin: 06/30/16 10:00 Dose: 650 mg Albuterol (Ventolin 2.5 Mg/3 Ml Neb.Katina*) 2.5 mg INH Q4H PRN PRN Reason: cough, SOB, wheeze Cefuroxime Axetil (Ceftin Tab(*)) 500 mg PO BID [facility] Donepezil HCl (Aricept Tab*) 10 mg PO DAILY [facility] Last Admin: 06/30/16 07:56 Dose: 10 mg Enoxaparin Sodium (Lovenox(*)) 40 mg SUBCUT Q24H [facility] Last Admin: 06/29/16 15:34 Dose: 40 mg Ceftriaxone Sodium 1,000 mg/ (Sodium Chloride) 50 mls @ 200 mls/hr IVPB Q24H [facility] Last Admin: 06/29/16 11:32 Dose: 200 mls/hr Levetiracetam (Keppra Tab*) 500 mg PO DAILY [facility] Last Admin: 06/30/16 07:56 Dose: 500 mg Levetiracetam (Keppra Tab*) 1,000 mg PO BEDTIME [facility] Last Admin: 06/29/16 20:56 Dose: 1,000 mg Mirtazapine (Remeron Tab*) 7.5 mg PO BEDTIME [facility] Mometasone Furoate/Formoterol Fumar (Dulera 200/5 Mdi*) 2 puff INH BID [facility] Last Admin: 06/30/16 08:03 Dose: 2 puff Morphine Sulfate (Morphine Inj (Syringe)*) 1 mg IV Q2H PRN PRN Reason: PAIN - MODERATE Last Admin: 06/29/16 08:40 Dose: 1 mg Ondansetron HCl (Zofran Inj*) 4 mg IV Q4H PRN PRN Reason: NAUSEA/VOMITING Last Admin: 06/30/16 10:00 Dose: 4 mg Tiotropium Lemitar (Spiriva Cap.Inh*) 1 cap INH DAILY [facility] Last Admin: 06/30/16 07:56 Dose: 1 cap Tramadol HCl (Ultram*) 50 mg PO Q6H PRN PRN Reason: PAIN - MODERATE TO SEVERE Tramadol HCl (Ultram*) 25 mg PO Q6H PRN PRN Reason: PAIN - MILD TO MODERATE Vital Signs 06/29/16 06/29/16 06/29/16 15:03 15:34 19:34 Temperature 98.3 F Pulse Rate 81 Respiratory 20 16 20 Rate Blood Pressure 95/50 (mmHg) O2 Sat by Pulse 98 Oximetry 06/29/16 06/29/16 06/30/16 20:00 23:26 02:30 Temperature 97.1 F Pulse Rate 78 Respiratory 18 24 Rate Blood Pressure 106/60 (mmHg) O2 Sat by Pulse 98 97 Oximetry 06/30/16 06/30/16 06/30/16 06:08 07:31 07:56 Temperature Pulse Rate 70 Respiratory 20 18 16 Rate Blood Pressure 107/59 (mmHg) O2 Sat by Pulse 97 Oximetry 06/30/16 08:00 Temperature Pulse Rate Respiratory 16 Rate Blood Pressure (mmHg) O2 Sat by Pulse Oximetry Oxygen Devices in Use Now: Nasal Cannula Appearance: Supine in bed. In fair spirits, passive. Looks comfortable, although has a basin on her lap. Eyes: No Scleral Icterus Respiratory: Symmetrical Chest Expansion and Respiratory Effort, Clear to Auscultation, Clear to Percussion Cardiovascular: NL Sounds; No Murmurs; No JVD, RRR, No Edema, - Extremities: No Edema, No Clubbing, Cyanosis, - Skin: No Rash or Ulcers, No Nodules or Sclerosis, - Neurological: Alert and Oriented x 3, NL Sensation Result Diagrams: 06/29/16 05:30 06/29/16 05:30 Additional Lab and Data: Laboratory Results - last 24 hr 06/28/16 05:50 WBC 13.4 H RBC 3.04 L Hgb 8.5 L Hct 27 L MCV 88 MCH 28 MCHC 32 RDW 15 Plt Count 360 MPV 9 Neut % (Auto) 87.9 H Lymph % (Auto) 6.5 L Meigs % (Auto) 4.5 Eos % (Auto) 0.8 Baso % (Auto) 0.3 Absolute Neuts (auto) 11.8 H Absolute Lymphs (auto) 0.9 L Absolute Monos (auto) 0.6 Absolute Eos (auto) 0.1 Absolute Basos (auto) 0 Absolute Nucleated RBC 0 Nucleated RBC % 0 Microbiology and Other Data: Microbiology 06/25/16 12:55 Urine Culture - Final Urine Escherichia Coli Assess/Plan/Problems-Billing Assessment: 81F presenting with L pyelonephritis w/ a congenitally non- functioning L kidney - Patient Problems (1) Pyelonephritis Current Visit: Yes Status: Acute Priority: High Code(s): N12 - TUBULO- INTERSTITIAL NEPHRITIS, NOT SPCF ACUTE OR CHRONIC SNOMED Code(s): 09170060 Comment: : L nephrostomy tube placed 06/25/2016 via Yahir Liu MD IR : E. coli sens to all antibiotics tested. 5th dose of IV ceftriaxone before discharge, then 10 doses cefuroxime 500 mg bid at SNF. : outpatient appointment w/ S [facility] Jul 04, 2016 @ 1100am, son notifie (2) Severe protein-calorie malnutrition Current Visit: Yes Status: Acute Code(s): E43 - UNSPECIFIED SEVERE PROTEIN- CALORIE MALNUTRITION SNOMED Code(s): 218504468 Comment: : pre-albumin <3 : nutrition consult appreciated appetite remains poor. Mirtazapine started , first dose at [facility]. SNF advised to give supplements for severe malnutrition. I spoke with son and dil about the poor prognosis given her malnutrition and poor appetite. Possibly she will always be too malnourished to have surgery. (3) Seizure disorder Current Visit: No Status: Chronic Code(s): G40.909 - EPILEPSY, UNSP, NOT INTRACTABLE, WITHOUT STATUS EPILEPTICUS SNOMED Code(s): 344076955 Comment: : continue levetiracetam : seizure precautions (4) Dementia Current Visit: No Status: Chronic Code(s): F03.90 - UNSPECIFIED DEMENTIA WITHOUT BEHAVIORAL DISTURBANCE SNOMED Code(s): 50888731 Comment: : continue donepezil. Going to SNF, could machine turner to be long-term. Status and Disposition: Discharge to [facility]. SNF to call [facility] for fup appt.
--- NOTE | 2016-06-30 11:14 | PN ---
Progress Note - Progress Note Note: Time spent on discharge 50 minutes.
[2016-06-30] MEDS ORDERED: Phytonadione Oral Solution* 5 MG/25 ML UDC PO ONE (11:20)
[2016-06-30] MEDS: cefTRIAXone VIAL(*) 1,000 MG in NS 0.9% 50 ML* 50 ML IVPB SCH (11:31)
--- NOTE | 2016-06-30 12:47 | DS ---
CC: Dr. Almaraz DISCHARGE SUMMARY: DATE OF ADMISSION: 06/24/16 DATE OF DISCHARGE: 06/30/16 HISTORY OF PRESENT ILLNESS: This 81-year-old woman presented with a chief complaint of weakness. S he had been in the emergency room less than 2 weeks before this present on admission with a right lo wer lobe infiltrate. She was given azithromycin. She has been a resident of [place]. According t o family she was eating and drinking poorly for a month or two. She had been admitted here in November with a complicated urinary tract infection with a nonfunctional left kidney with hydronephrosis. Sh e had nephrostomy tube placement with purulent material drained from the left kidney and the nephros mariana tube was left in for 6 weeks. The patient was seen in consultation by Dr. Baltazar. Dr. Liu put in left nephrostomy tube again . Her urine culture grew out E. coli sensitive to all antibiotics tested. Dr. Baltazar recommended that she complete her course of antibiotics and the nephrostomy tube be left in place until she hav e a nephrectomy, which would be done elsewhere. He would help arrange that. The patient continued poorly in the hospital despite getting antibiotics treatment and intravenous f luids. I note her prealbumin on 06/27/16 was less than 3, this is the only time it was measured. H er albumin on 06/24/16 was 2.7. INR on 06/24/16 was 1.49. The patient was treated with intravenous ceftriaxone, she received the 5th IV dose on the day of dis charge. She will have 5 more of days of ceftriaxone 500 mg b.i.d. to complete her antibiotics cours e. She continued to eat poorly. She did not do well with supplements. I am starting her on mirtaz apine 7.5 mg daily at bedtime. She will get her first dosing in the assisted on 06/30/16. She s hould be given supplements. The family understands that there is probably not much we can do to improve her nutrition other than to encourage her and provide foods that she might enjoy and to offer supplements. She is certainly too malnourished now to undergo surgery, probably even laparoscopic nephrectomy might well be delay ed until her nutritional status improve, I am not sure that will ever happen. The family understand s this and accepts. FINAL DIAGNOSES: 1. Pyelonephritis. 2. Severe protein calorie malnutrition. 3. Seizure disorder. 4. Dementia. DISCHARGE MEDICATIONS: 1. Phytonadione 5 mg every Thursday. 2. Acetaminophen 650 mg every 4 hours p.r.n. 3. Mirtazapine 7.5 mg at bedtime. 4. Tramadol 25 mg q.6 hours p.r.n. 5. Tramadol 50 mg q.6 hours p.r.n. moderate to severe pain. 6. Levetiracetam 500 mg daily. 7. Fluticasone salmeterol 250/51 one puff b.i.d. 8. Donepezil 10 mg daily. 9. Levetiracetam 1000 mg at bedtime. 10. Tiotropium 1 capsule inhaled daily. 11. Albuterol 2.5 mg every 4 hours p.r.n. [id number]/[facility] #: [id number]
[2016-06-30] MEDS ORDERED: ceFUROXime TAB(*) 250 MG PO SCH (21:00)
[2016-06-30] MEDS ORDERED: Mirtazapine TAB* 15 MG PO SCH (21:00)
== END 2016-06-30 13:15 | disposition home or self-care (01) | DRG 689 ==
LOC: ED 11:14 → MED 13:15 → MEDTELE 06-25 14:36 → MED 06-27 08:35
PROVIDERS: ADMIT Internal Medicine; ATTEND Internal Medicine
PROC: 0T9130Z Drainage of Left Kidney with Drainage Device, Percutaneous Approach (ICD-10-PCS; principal; 2016-06-25)
DX: N10 Acute pyelonephritis (principal); E43 Unspecified severe protein-calorie malnutrition; G31.89 Other specified degenerative diseases of nervous system; F03.90 Unspecified dementia, unspecified severity, without behavioral disturbance, psychotic disturbance, mood disturbance, and anxiety; J96.10 Chronic respiratory failure, unspecified whether with hypoxia or hypercapnia; Z99.81 Dependence on supplemental oxygen; B96.20 Unspecified Escherichia coli [E. coli] as the cause of diseases classified elsewhere; N13.6 Pyonephrosis; J44.9 Chronic obstructive pulmonary disease, unspecified; K59.00 Constipation, unspecified; N18.9 Chronic kidney disease, unspecified; Z66 Do not resuscitate; Z87.891 Personal history of nicotine dependence; Q27.1 Congenital renal artery stenosis; Z79.899 Other long term (current) drug therapy; Z68.22 Body mass index [BMI] 22.0-22.9, adult
CPT/HCPCS: 36415; 50432; 71010; 76775; 80048; 80053; 81003; 81015; 82140; 82553; 83605; 83615; 83690; 83735; 83880; 84134; 84439; 84443; 84481; 84484; 85014; 85018; 85025; 85027; 85610; 85730; 86140; 87077; 87086; 87186; 90686; 93005; 94640; 94760; A9270-GY; J0696; J1650; J2270; J2405; J3010; Q9967